=== PATIENT | male | born 1960 | race Caucasian/White ===

== ENCOUNTER → 2016-12-29 | Outpatient (CLI) | payer BC | LOC: RAD 17:28 | DX: M25.561 Pain in right knee (principal) | CPT/HCPCS: 73564 ==

== ENCOUNTER → 2020-12-14 | Outpatient (CLI) | payer BC | LOC: KOH-I 12:41 | DX: M54.2 Cervicalgia (principal); M47.812 Spondylosis without myelopathy or radiculopathy, cervical region | CPT/HCPCS: 72040 ==

== ENCOUNTER → 2021-05-20 | Outpatient (CLI) | payer BC | LOC: KOH-I 09:48 | DX: M25.561 Pain in right knee (principal); M25.9 Joint disorder, unspecified; M19.032 Primary osteoarthritis, left wrist; M17.11 Unilateral primary osteoarthritis, right knee | CPT/HCPCS: 73100; 73560 ==

== ENCOUNTER → 2021-06-29 | Outpatient (CLI) | payer BC | LOC: KOH-I 06-28 11:15 | DX: M23.91 Unspecified internal derangement of right knee (principal); M76.51 Patellar tendinitis, right knee; M70.41 Prepatellar bursitis, right knee | CPT/HCPCS: 73721 ==

== ENCOUNTER → 2021-07-08 | Outpatient (CLI) | payer BC | LOC: KOH-I 09:44 | DX: M25.561 Pain in right knee (principal); M25.511 Pain in right shoulder; M19.011 Primary osteoarthritis, right shoulder | CPT/HCPCS: 73030; 73560 ==

== ENCOUNTER → 2021-08-11 | Outpatient (CLI) | payer BC ==
[~2021-08-11] MED LIST: APPLE CIDER VI500 MG PO; CINNAMON500 MG PO; GTF CHROMIUM PO; HYALURONIC ACID PO; KELP PO; LISINOPRIL5 MG PO; MAGNESIUM CITR100 MG PO; METFORMIN HCL1000 M1 PO; MULTI-VITAMIN1 EACH PO; NAPROXEN500 MG PO; TESTOSTERON100 MG/ML IM; ZINC CHELATE PO; ZYRTEC10 MG PO; [UNRECOGNIZED DRUG - OTHER] EARBOTH
[2021-08-11 10:42] LABS: BUN/CREATININE RATIO 37 (0-10)
== END ==
LOC: OPSV2 09:49
PROVIDERS: Orthopaedic Surgery
DX: Z01.818 Encounter for other preprocedural examination (principal); S83.241A Other tear of medial meniscus, current injury, right knee, initial encounter; R91.8 Other nonspecific abnormal finding of lung field
CPT/HCPCS: 71046; 80048; 83036; 93005

== ENCOUNTER → 2021-08-26 | Day surgery (SDC) | payer BC ==
[~2021-08-26] VITALS: Ht 167.6 cm; Wt 99.3 kg
[~2021-08-26] MED LIST changes: +HYDROCODON-ACE1 EAC2 PO
== END | disposition home or self-care (01) ==
LOC: OR 08:32
DX: S83.241A Other tear of medial meniscus, current injury, right knee, initial encounter (principal); S83.281A Other tear of lateral meniscus, current injury, right knee, initial encounter; M94.261 Chondromalacia, right knee; I10 Essential (primary) hypertension; E11.9 Type 2 diabetes mellitus without complications; E66.01 Morbid (severe) obesity due to excess calories; Z88.2 Allergy status to sulfonamides; Z79.84 Long term (current) use of oral hypoglycemic drugs; Z79.899 Other long term (current) drug therapy; Z20.822 Contact with and (suspected) exposure to COVID-19; X50.1XXA Overexertion from prolonged static or awkward postures, initial encounter
CPT/HCPCS: 82962; J0171; J0690; J1100; J1170; J1885; J2250; J2405; J2704; J3010; J7030; J7120

== ENCOUNTER → 2021-11-23 | Outpatient (CLI) | payer BC | LOC: KOH-I 15:00 | DX: M79.661 Pain in right lower leg (principal) | CPT/HCPCS: 93971 ==

== ENCOUNTER → 2021-12-09 | Outpatient (CLI) | payer BC | LOC: KOH-I 15:18 | DX: R05.9 Cough, unspecified (principal) | CPT/HCPCS: 71046 ==

== ENCOUNTER → 2021-12-13 | Outpatient (CLI) | payer BC ==
[2021-12-13 13:19] LABS: BORDETELLA PARAPERTUSSIS Not Detected (Not Detectd); BORDETELLA PERTUSSIS Not Detected (Not Detectd); CHLAMYDIA PNEUMONIAE Not Detected (Not Detectd); CORONAVIRUS HKU1 Not Detected (Not Detectd); CORONAVIRUS NL63 Not Detected (Not Detectd); CORONAVIRUS OC43 Not Detected (Not Detectd); CORONOAVIRUS 229E Not Detected (Not Detectd); HUMAN METAPNEUMOVIRUS Not Detected (Not Detectd); HUMAN RHINOVIRUS/ENTEROVIRUS Not Detected (Not Detectd); INFLUENZA A Not Detected (Not Detectd); INFLUENZA B Not Detected (Not Detectd); MYCOPLASMA PNEUMONIAE Not Detected (Not Detectd); PARAINFLUENZA VIRUS 1 Not Detected (Not Detectd); PARAINFLUENZA VIRUS 2 Not Detected (Not Detectd); PARAINFLUENZA VIRUS 3 Not Detected (Not Detectd); PARAINFLUENZA VIRUS 4 Not Detected (Not Detectd); RESPIRATORY SYNCYTIAL VIRUS Not Detected (Not Detectd)
[2021-12-13 14:57] LABS: SARS-CoV-2 DETECTED (Not Detectd)
== END ==
LOC: LAB 13:03
PROVIDERS: Physician Assistant
DX: R69 Illness, unspecified (principal); U07.1 COVID-19
CPT/HCPCS: 87633

== ENCOUNTER → 2022-03-23 | Outpatient (CLI) | payer BC | LOC: KOH-I 16:08 | DX: R10.9 Unspecified abdominal pain (principal); M54.6 Pain in thoracic spine; M47.814 Spondylosis without myelopathy or radiculopathy, thoracic region | CPT/HCPCS: 72070; 74018 ==